=== PATIENT | female | born 1965 | race Caucasian/White ===

== ENCOUNTER 2019-05-30 09:18 | Day surgery (SDC) | payer MEDICARE, OTHER ==
[2019-05-30] MEDS ORDERED: Sodium Chloride 0.9% 1,000 ML IV SCH (10:00)
--- NOTE | 2019-05-30 10:01 | EDM.PDOC ---
ED HPI GENERAL MEDICAL PROBLEM - General Chief Complaint: Lower Extremity Injury/Pain Stated Complaint: FELL DOWN STAIRS AND POSSIBLE BROKE ANKLE Time Seen by Provider: 05/30/19 10:01 Source of Information: Reports: Patient History Limitations: Reports: No Limitations - History of Present Illness INITIAL COMMENTS - FREE TEXT/NARRATIVE: pt missed 2 steps ans twisted her rt ankle causuing a fracture dislocation of the ankle Onset: Today, Sudden Duration: Hour(s): Location: Reports: Lower Extremity, Right Associated Symptoms: Reports: Diaphoresis, Other (pt does have a history of MS. 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: Reports: MS - Past Surgical History GI Surgical History: Reports: Cholecystectomy Social & Family History - Tobacco Use Smoking Status *Q: Never Smoker - Caffeine Use Caffeine Use: Reports: Coffee - Recreational Drug Use Recreational Drug Use: No Review of Systems - Review of Systems Review Of Systems: See Below Constitutional: Reports: No Symptoms Eyes: Reports: No Symptoms Ears: Reports: No Symptoms Nose: Reports: No Symptoms Mouth/Throat: Reports: No Symptoms Respiratory: Reports: No Symptoms Cardiovascular: Reports: No Symptoms GI/Abdominal: Reports: No Symptoms Musculoskeletal: Reports: Other (pt has acute pain in the rt ankle with marked deformity of the ankle. ) Skin: Reports: No Symptoms Neurological: Reports: No Symptoms ED EXAM, GENERAL - Physical Exam Exam: See Below Free Text/Narrative:: pt has a known history of MS and she missed a step and fell 2 steps down. She ended up with marked deformity of the ankle. Exam Limited By: No Limitations General Appearance: Alert, Anxious, Moderate Distress, Other (pupils are equal and reactive. ) Ears: Normal TMs Nose: Normal Inspection Throat/Mouth: Normal Inspection Head: Atraumatic Neck: Normal Inspection Respiratory/Chest: No Respiratory Distress Cardiovascular: Regular Rate, Rhythm GI/Abdominal: Soft, Non-Tender (Female) Exam: Deferred Rectal (Female) Exam: Deferred Extremities: Other (pt has marked deformity of the ankle. she has a obvious fracture dislocation of the ankle. On xray both fibula and tibia are fractured and she has a dislocation. present. ) Psychiatric: Anxious Course - Vital Signs Last Recorded V/S: Last Vital Signs Temp 36.4 C 05/30/19 10:03 Pulse 71 05/30/19 10:03 Resp 16 05/30/19 10:03 BP 148/83 H 05/30/19 10:03 Pulse Ox 100 05/30/19 10:03 - Orders/Labs/Meds Labs: Laboratory Tests 05/30/19 05/30/19 Range/Units 10:20 10:20 WBC 12.6 H (4.5-11.0) K/uL RBC 4.66 (3.30-5.50) M/uL Hgb 13.9 (12.0-15.0) g/dL Hct 42.2 (36.0-48.0) % MCV 91 (80-98) fL MCH 30 (27-31) pg MCHC 33 (32-36) % Plt Count 299 (150-400) K/uL Neut % (Auto) 81 H (36-66) % Lymph % (Auto) 13 L (24-44) % [place] % (Auto) 5 (2-6) % Eos % (Auto) 1 L (2-4) % Baso % (Auto) 0 (0-1) % Sodium 142 (140-148) mmol/L Potassium 3.9 (3.6-5.2) mmol/L Chloride 105 (100-108) mmol/L Carbon Dioxide 27 (21-32) mmol/L Anion Gap 10.4 (5.0-14.0) mmol/L BUN 16 (7-18) mg/dL Creatinine 0.6 (0.6-1.0) mg/dL Est Cr Clr Drug Dosing 92.56 mL/min Estimated GFR (MDRD) > 60 (>60) Glucose 118 H (74-106) mg/dL Calcium 9.3 (8.5-10.1) mg/dL Meds: Medications Discontinued Medications Generic Name Dose Route Start Last Admin Trade Name Freq PRN Reason Stop Dose Admin Bupivacaine HCl Confirm 05/30/19 12:58 05/30/19 15:39 Marcaine 0.5% Administered 05/30/19 12:59 20 ml Dose Administration 50 ml .ROUTE .STK-MED ONE Dexamethasone Confirm 05/30/19 13:54 Dexamethasone Administered 05/30/19 13:55 Dose 4 mg .ROUTE .STK-MED ONE Fentanyl Confirm 05/30/19 13:53 Sublimaze Administered 05/30/19 13:54 Dose 250 mcg .ROUTE .STK-MED ONE Fentanyl Confirm 05/30/19 16:18 Sublimaze Administered 05/30/19 16:19 Dose 100 mcg .ROUTE .STK-MED ONE Glycopyrrolate Confirm 05/30/19 13:54 Robinul Administered 05/30/19 13:55 Dose 1 mg .ROUTE .STK-MED ONE Hydromorphone HCl 0.5 mg 05/30/19 12:20 05/30/19 12:27 Dilaudid IVPUSH 05/30/19 12:21 0.5 mg ONETIME ONE Administration Sodium Chloride 1,000 mls @ 250 mls/hr 05/30/19 10:00 05/30/19 10:24 Normal Saline IV 250 mls/hr ASDIRECTED PATRICIA Administration Cefazolin Sodium/Dextrose 2 gm 50 mls @ 100 mls/hr 05/30/19 12:49 05/30/19 14 :49 / Premix IV 05/30/19 13:18 100 mls/hr ONETIME ONE Administration Neostigmine Methylsulfate Confirm 05/30/19 13:54 Neostigmine Administered 05/30/19 13:55 Dose 5 mg .ROUTE .STK-MED ONE Ondansetron HCl Confirm 05/30/19 13:54 Zofran Administered 05/30/19 13:55 Dose 4 mg .ROUTE .STK-MED ONE Propofol Confirm 05/30/19 13:54 Diprivan 20 Ml Administered 05/30/19 13:55 Dose 200 mg .ROUTE .STK-MED ONE Rocuronium [place] Confirm 05/30/19 13:54 Zemuron Administered 05/30/19 13:55 Dose 50 mg .ROUTE .STK-MED ONE Scopolamine 1.5 mg 05/30/19 13:41 05/30/19 13:45 Transderm-Scop TRDERM 05/30/19 13:42 1.5 mg ONETIME ONE Administration Succinylcholine Chloride Confirm 05/30/19 13:54 Quelicin Administered 05/30/19 13:55 Dose 200 mg .ROUTE .STK-MED ONE - Re-Assessments/Exams Free Text/Narrative Re-Assessment/Exam: 05/30/19 11:19 fracture dislocation of the rt ankle. Iv was started she was given dilauduid .5 iv. She is much more comfortable. Departure - Departure Time of Disposition: 14:55 Disposition: Admitted As Inpatient 66 Condition: Fair Clinical Impression: Fracture dislocation of ankle - Discharge Information
--- NOTE | 2019-05-30 11:52 | CR ---
Ankle Min 3V Rt CLINICAL HISTORY: Injury FINDINGS: There is fracture dislocation at the ankle with a displaced to terminated fracture of the fibula as well as a displaced fracture of the medial tibial plateau and posterior plafond. There is lateral dislocation of the talus. Talar dome has a normal contour. Subtalar joint appears intact. There is a calcaneal spur. Impression: Displaced trimalleolar fracture and lateral talar dislocation
[2019-05-30] MEDS ORDERED: HYDROmorphone 0.5 MG/0.5 ML Syringe IVPUSH ONE (12:20)
[2019-05-30] MEDS ORDERED: ceFAZolin 2 GM in Premix Bag 1 BAG IV ONE (12:49)
[2019-05-30] MEDS ORDERED: Bupivacaine 0.5% 50 ML MDV ONE (12:58)
[2019-05-30] MEDS ORDERED: Scopolamine 1.5 MG Transdermal Patch TRDERM ONE (13:41)
[2019-05-30] MEDS ORDERED: fentaNYL 250 MCG/5 ML SDV ONE (13:53)
[2019-05-30] MEDS ORDERED: Succinylcholine 200 MG/10 ML MDV ONE (13:54)
[2019-05-30] MEDS ORDERED: Propofol 200 MG/20 ML SDV ONE (13:54)
[2019-05-30] MEDS ORDERED: Dexamethasone 4 MG/ML SDV ONE (13:54)
[2019-05-30] MEDS ORDERED: Ondansetron 4 MG/2 ML SDV ONE (13:54)
[2019-05-30] MEDS ORDERED: Neostigmine Methylsulfate 1 MG/ML 5 ML Syringe ONE (13:54)
[2019-05-30] MEDS ORDERED: Glycopyrrolate 0.2 MG/ML 5 ML MDV ONE (13:54)
[2019-05-30] MEDS ORDERED: Rocuronium 50 MG/5 ML Vial ONE (13:54)
[2019-05-30] MEDS ORDERED: fentaNYL 100 MCG/2 ML SDV ONE (16:18)
--- NOTE | 2019-06-01 13:35 | OR ---
DATE OF PROCEDURE: 05/30/2019 POSTOPERATIVE DIAGNOSIS: Fracture dislocation, right ankle. POSTOPERATIVE DIAGNOSIS: Bimalleolar right ankle fracture with dislocation. PROCEDURE: Open reduction and internal fixation, right ankle. ANESTHESIA: General. INDICATIONS: Cathy is a 54-year-old female, who sustained a fall down her basement steps at home resulting in a bimalleolar fracture with dislocation of the ankle joint laterally. She presented to the emergency room with obvious deformity and x-rays confirming a bimalleolar fracture. She was taken to the operating room for open reduction and internal fixation. Risks, benefits, and potential complications of the procedure were discussed. PROCEDURE IN DETAIL: After adequate anesthesia was obtained, the patient was placed supine with a tourniquet about the right upper thigh. Right leg was prepped and draped in a sterile fashion. The leg was exsanguinated and tourniquet inflated to 300 mmHg pressure. A longitudinal incision was made over the lateral aspect of the ankle and carried down through the subcutaneous tissues. This was taken down to the lateral border of the fibula. Fibular fracture was identified. This was cleared of soft tissues and the fracture was then reduced. This was held in a reduced position with a bone clamp and a lag screw was placed from anterior to posterior over-drilling the anterior cortex. The clamp was removed and a contoured distal fibular plate was then placed. This was secured with 3.5 cortical screws proximally and locking screws distally. Final position of hardware and reduction was confirmed using fluoroscopy. Attention was turned to the medial malleolus. A curvilinear incision was made over the distal tibia and medial malleolus. The fracture was identified. Periosteum and soft tissues were cleared from the fracture site. The fracture fragment was then reduced and an attempt was made to secure this with a 4.0 partially threaded screw. During attempted compression across the fracture site, the screw head would penetrate into the tibia indicating a fairly osteoporotic bone and poor fixation. Decision was made to add an additional tension band wire to the fixation. Two drill holes were made proximal to the fracture line approximately paralleling the fracture. These were connected using a towel clamp. A 16-gauge wire was then passed through the bone tunnel and over the fracture site in a [id number] fashion placing one limb of the wire around the screw distally. This was then tensioned down compressing the fracture. The screw was then further advanced. Final position was confirmed using fluoroscopy. This provided much better fixation. The wire was cut and bent into the soft tissues around the anterior malleolus. Both incisions were then thoroughly irrigated. These were closed with 0 Vicryl in the deep layer, 2-0 Vicryl and 3-0 Monocryl on the skin. Steri-Strips were applied. Both wounds were infiltrated with 0.5% Marcaine without epinephrine. Sterile dressing was then placed with a well-padded AO plaster splint with the foot in neutral position. Peña Bacon MD /[id number]
== END 2019-05-30 18:38 | disposition home or self-care (01) ==
LOC: JP.ED 09:18 → JP.SDS 14:44 → JP.ICU 14:45 → JP.SDS 18:38
PROVIDERS: ATTEND Specialist
DX: S82.841A Displaced bimalleolar fracture of right lower leg, initial encounter for closed fracture (principal); E66.9 Obesity, unspecified; G35 Multiple sclerosis; W10.9XXA Fall (on) (from) unspecified stairs and steps, initial encounter; Z68.30 Body mass index [BMI] 30.0-30.9, adult
CPT/HCPCS: 27814; 36415; 73610; 76000; 80048; 85025; 96361; 96374; 99284; A9270; C1713; J0330; J0690; J1100; J1170; J2405; J2704; J3010; J3490; J7030; J2710

== ENCOUNTER 2019-05-31 22:11 | Emergency (ER) | payer MEDICARE, OTHER ==
--- NOTE | 2019-05-31 23:23 | EDM.PDOC ---
ED HPI GENERAL MEDICAL PROBLEM - General Chief Complaint: Lower Extremity Injury/Pain Stated Complaint: RIGHT ANKLE SURGERY COMPLICATIONS Time Seen by Provider: 05/31/19 23:21 Source of Information: Reports: Patient, RN Notes Reviewed History Limitations: Reports: No Limitations - History of Present Illness INITIAL COMMENTS - FREE TEXT/NARRATIVE: 54-year-old female presents to emergency department today concerned about recent surgery on her ankle she has remained in the past she has bear weight unintentionally notice saturation of the padding around the temporary splint right ankle Pain Score (Numeric/FACES): 4 - Related Data Allergies Allergy/AdvReac Type Severity Reaction Status Date / Time No Known Allergies Allergy Verified 05/31/19 23:03 Home Meds: Home Meds NK [No Known Home Meds] 05/30/19 [History] Past Medical History HEENT History: Reports: Impaired 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 History: Reports: Fracture Neurological History: Reports: MS - Past Surgical History GI Surgical History: Reports: Cholecystectomy Musculoskeletal Surgical History: Reports: Other (See Below) Other Musculoskeletal Surgeries/Procedures:: surgical repair right ankle Social & Family History - Tobacco Use Smoking Status *Q: Never Smoker - Caffeine Use Caffeine Use: Reports: Coffee - Recreational Drug Use Recreational Drug Use: No Review of Systems - Review of Systems Review Of Systems: See Below Constitutional: Reports: No Symptoms Skin: Reports: Wound ED EXAM, GENERAL - Physical Exam Exam: See Below Free Text/Narrative:: Examination the wound there is small amount of saturated blood in the padding around surgical site not atypical examination of surgical wound clean dry and intact Steri-Strips still in place no visible bleeding at this time Exam Limited By: No Limitations General Appearance: Alert, WD/WN, No Apparent Distress Course - Vital Signs Last Recorded V/S: Last Vital Signs Temp 97.3 F 05/31/19 23:04 Pulse 77 05/31/19 23:04 Resp 22 H 05/31/19 23:04 BP 123/66 05/31/19 23:04 Pulse Ox 97 05/31/19 23:04 Departure - Departure Time of Disposition: 23:55 Disposition: Home, Self-Care 01 Condition: Fair Clinical Impression: Status post ORIF of fracture of ankle, Encounter for wound re-check - Discharge Information Referrals: PCP,None [Primary Care Provider] - Forms: ED Department Discharge Additional Instructions: Keep your follow-up appointment with orthopedics next week continue your postoperative care continue with non-weight bearing - Assessment/Plan Plan: Assessment Acuity = acute Site and laterality = postop wound check Etiology = postop day 1 ORIF right ankle Manifestations = none Location of injury = Home Lab values = none Plan Wound was redressed with the splint she has a follow-up appointment with orthopedics next Thursday continue regular. This note was dictated using [employer] voice recognition software please call with any questions on syntax or grammar.
== END 2019-05-31 23:55 | disposition home or self-care (01) ==
LOC: JP.ED 22:11
DX: S82.891D Other fracture of right lower leg, subsequent encounter for closed fracture with routine healing (principal); Z90.49 Acquired absence of other specified parts of digestive tract; X58.XXXD Exposure to other specified factors, subsequent encounter
CPT/HCPCS: 99282; 99283

== ENCOUNTER 2022-09-09 06:56 | Day surgery (SDC) | payer MEDICARE ==
[2022-09-09] MEDS ORDERED: Propofol 200 MG/20 ML SDV ONE (07:26)
[2022-09-09] MEDS ORDERED: Midazolam 1 MG/ML 2 ML SDV ONE (07:26)
[2022-09-09] MEDS ORDERED: Lactated Ringers 1,000 ML IV SCH (08:00)
== END 2022-09-09 09:52 | disposition home or self-care (01) ==
LOC: JP.SDS 06:56
PROVIDERS: ATTEND Family Medicine
DX: Z12.11 Encounter for screening for malignant neoplasm of colon (principal); E66.9 Obesity, unspecified; G35 Multiple sclerosis; Z68.36 Body mass index [BMI] 36.0-36.9, adult; Z90.49 Acquired absence of other specified parts of digestive tract
CPT/HCPCS: G0121; J2250; J2704; J7120